=== PATIENT | female | born 2000 | race Caucasian/White ===

== ENCOUNTER 2018-09-01 16:51 | Emergency (ER) | payer OTHER ==
--- NOTE | 2018-09-01 17:13 | ED Physician Documentation ---
Upper Extremity Injury - HISTORIAN Historian: patient - HPI Stated Complaint: right elbow pain Chief Complaint: Upper Back Injury/ Pain Additional Information: Patient presents to ED with complaints of right elbow pain after slipping and falling on the ice today at school. Onset: today Where: school Severity: mild Duration: persistent since Context: fall Associated Symptoms: denies: tingling, numbness distally, feeling loss, loss of power to arms Modifying Factors: pain on movement - ROS CONST: no problems CVS/RESP: none NEURO: none MS/SKIN/LYMPH: none GI/: denies: nausea, vomiting - PAST HX Past History: none, Rt handed - SOCIAL HX Smoking History: non-smoker Alcohol Use: none Drug Use: none - FAMILY HX Family History: none - VITAL SIGNS Vital Signs: Vital Signs Temp Pulse Resp BP Pulse Ox 98.2 F 84 16 116/76 95 09/01/18 19:20 09/01/18 19:20 09/01/18 19:20 09/01/18 19:20 09/01/18 19:20 - REVIEWED ASSESSMENTS Nursing Assessment Reviewed: Yes Vitals Reviewed: Yes ED Results Lab/Radiology - Orders Orders: ED Orders Category Date Time Status Long Arm Splint 1T Care 09/01/18 18:15 Active Sling to Affected Extremity 1T Care 09/01/18 18:04 Active ELBOW 3 VIEWS [RAD] Stat Exams 09/01/18 Taken HYDROcodone /APAP 5/325 [[place] 5/325] Med 09/01/18 18:27 Discontinued 1 each PO NOW ONE Upper Extremity Injury Physic - Physical Exam General Appearance: alert Hand: normal inspection, no evidence of injury Wrist: normal inspection, no evidence of injury Elbow/Forearm: limited ROM, soft tissue tenderness (tenderness over radial head), swelling Shoulder: normal inspection, no evidence of injury Neuro/Vascular/Tendon: no vascular compromise, motor nml, sensation nml Skin: warm,dry Head/ENT: nml inspection Neck/Back: nml inspection Resp/CVS: chest non-tender, breath sounds nml, heart sounds nml Abdomen: non-tender. No: tenderness Discharge Clincal Impression: Fracture of ulna, coronoid process Qualifiers: Encounter type: initial encounter Fracture type: closed Fracture alignment: nondisplaced Laterality: right Qualified Code(s): S52.044A - Nondisplaced fracture of coronoid process of right ulna, initial encounter for closed fracture Referrals: Primary Doctor,No [Primary Care Provider] - 2 Days Additional Instructions: 1. [place] as needed for pain. You may add ibuprofen to this medication for better pain control 2. Keep elbow elevated as much as possible 3. Remove sling when resting 4. Follow up with Orthopedic Surgeon as soon as possible. Condition: Stable Disposition: 01 HOME, SELF-CARE Decision to Admit: NO Date of Decison to Admit: 09/01/18 Decision Time: 20:14
[2018-09-01] MEDS ORDERED: HYDROcodone /APAP 5/325 1 EACH TABLET PO ONE (18:27)
[2018-09-01 19:26] VITALS: BP 116/76
--- NOTE | 2018-09-02 04:27 | Diagnostic Imaging Report ---
NAN EDMOND [facility] [id number] [facility] [address] [address] Report Submission Date: Sep 01, 2018 5:58:35 PM ELECTRICIAN SUBSTATION Patient Study Name: MALIA VAZQUEZ Date: Sep 01, 2018 5:12:38 PM ELECTRICIAN [employer]STATION Modality Type: DX Gender: F Description: ELBOW 3 VIEWS : 98 Institution: [facility] Physician: NAN EDMOND Right elbow History: Status post fall Three views of the elbow were obtained which demonstrate the presence a joint effusion. There is a nondisplaced fracture involving the coronoid process of the ulna. No additional osseous abnormalities are noted. The radial head is intact. Impression: Presence of a joint effusion. Nondisplaced fracture involving the coronoid process of the ulna. Electronically signed on Sep 01, 2018 5:58:35 PM ELECTRICIAN SUBSTATION by: Joanne MEANS
== END 2018-09-01 19:20 | disposition home or self-care (01) ==
LOC: ED 16:51
DX: S52.044A Nondisplaced fracture of coronoid process of right ulna, initial encounter for closed fracture (principal); W00.9XXA Unspecified fall due to ice and snow, initial encounter; Y93.01 Activity, walking, marching and hiking; Y92.219 Unspecified school as the place of occurrence of the external cause
CPT/HCPCS: 29125; 73080; 99283

== ENCOUNTER 2019-06-03 21:55 | Emergency (ER) | payer OTHER ==
--- NOTE | 2019-06-03 22:12 | ED Physician Documentation ---
Abdominal Pain - HISTORIAN Historian: patient - HPI Stated Complaint: R abd pain Chief Complaint: General Adult Onset: other (2 weekd) Duration: waxing, waning Timing: still present Context: other (current menses) Severity: moderate Quality: pain Associated Symptoms: nausea, vomiting Further Comments: yes (Pt is a 18 yo female with R-sided abd pain off & on x 2 weeks. Pain is in the lower abd, primarily on the R side. Pt is currently having menses and say she often gets significant pain with it, but it has never been quite this bad. Pt has not had fever, dysuria, back pain. She has had cramping.) - ROS CONST: no problems GI/: other (menses) CVS/RESP: none EYES/ENT: none MS/SKIN/LYMPH: none NEURO/PSYCH: none - SOCIAL HX Smoking History: non-smoker - FAMILY HX Family History: none - PAST HX Past History: none Other History: none Home Medications: Ambulatory Orders Medication Instructions Recorded FLUoxetine HCL [Prozac] 10 mg PO QD 06/03/19 Norethindrone-Ethinyl Estrad 1 mg PO DAILY 06/03/19 [Nortrel 7-7-7-28 Tablet] Allergies/Adverse Reactions: Allergies Allergy/AdvReac Type Severity Reaction Status Date / Time No Known Allergies Allergy Verified 06/03/19 22:13 - VITAL SIGNS Vital Signs: Vital Signs Temp Pulse Resp BP Pulse Ox 98.4 F 64 20 119/49 100 06/03/19 22:00 06/03/19 22:00 06/03/19 22:00 06/03/19 22:00 06/03/19 22:00 - REVIEWED ASSESSMENTS Nursing Assessment Reviewed: Yes Vitals Reviewed: Yes Progress - Progress Progress: Pt appears to be in little acute distress. Toradol 30 mg IV in ER Zofran 4 mg IV NS 1 L IVF improved after Toradol probable menses recommend pt consider f/u with pcp or languages and literature instructor for u/s to r/o ovarian cyst return to ER if condition worsens or there are new concerns. ED Results Lab/Radiology - Orders Orders: ED Orders Category Date Time Status Place IV Lock 1T Care 06/03/19 22:17 Active CBC/PLATELET/DIFF Routine Lab 06/03/19 22:39 Received CMP Routine Lab 06/03/19 22:39 Received LIPASE Stat Lab 06/03/19 22:39 Received UA [URINALYSIS] Routine Lab 06/03/19 Ordered URINE HCG Stat Lab 06/03/19 22:45 Ordered 0.9 % Sodium Chloride [Normal Saline] 1,000 ml Med 06/03/19 22:17 Active IV Q1H Ketorolac Tromethamine [Toradol] Med 06/03/19 22:56 Once 30 mg IV NOW ONE Ondansetron HCl/Pf [Zofran] Med 06/03/19 22:18 Discontinued 4 mg IVP NOW ONE Abdominal Pain Physical Exam - Physical Exam General Appearance: no acute distress EENT: pharynx normal NECK: normal inspection, supple RESPIRATORY: no resp distress, chest non-tender, breath sounds normal CVS: reg rate & rhythm, heart sounds normal ABDOMEN: soft, normal bowel sounds, tenderness (diffuse abd tenderness with increasing toward lower abd) BACK: normal inspection, no CVA tenderness SKIN: warm/dry, normal color EXTREMITIES: non-tender, normal range of motion, no evidence of injury, no edema NEURO: oriented X3, motor nml, sensation nml Vital Signs: Vital Signs Temp Pulse Resp BP Pulse Ox 98.4 F 64 20 119/49 100 06/03/19 22:00 06/03/19 22:00 06/03/19 22:00 06/03/19 22:00 06/03/19 22:00 Discharge Clincal Impression: Abdominal pain, probable menstrual pain Referrals: Primary Doctor,No [Primary Care Provider] - Condition: Stable Disposition: 01 HOME, SELF-CARE Decision to Admit: NO Decision Time: 23:27
[2019-06-03] MEDS ORDERED: 0.9 % SODIUM CHLORIDE 1,000 ML IV ONE (22:17)
[2019-06-03] MEDS ORDERED: ONDANSETRON HCL/PF 4 MG/ 2ML VIAL IVP ONE (22:18)
[2019-06-03] MEDS ORDERED: KETOROLAC TROMETHAMINE 30 MG/1ML VIAL IV ONE (22:56)
[2019-06-03 23:37] VITALS: BP 116/64
[2019-06-04 06:14] LABS: OCCULT BLOOD,URINE NEGATIVE (NEGATIVE); PH URINE 6.5 (5.0 - 8.0); UROBILINOGEN URINE 0.2 Eu (0.2-1.0)
[2019-06-04 07:11] LABS: eGFR (Non-African) > 60
[2019-06-04 07:12] LABS: BASOPHILS % 0.6 % (0.0-1.5); NEUTROPHILS # 3.2 # k/uL (1.4-7.7)
== END 2019-06-03 23:26 | disposition home or self-care (01) ==
LOC: ED 21:55
DX: R10.9 Unspecified abdominal pain (principal); R11.2 Nausea with vomiting, unspecified
CPT/HCPCS: 80053; 81002; 81025; 83690; 85025; 96361; 96374; 96375; 99282; 99284; J1885; J2405; J7030; S1016